=== PATIENT | male | born 1990 | race Caucasian/White ===

== ENCOUNTER 2017-12-14 13:19 | Inpatient (IN) | payer MEDICARE ==
[2017-12-14 13:58] LABS: Amphetamine Screen,Urine Not Detected (NotDetected); Barbiturate Screen,Urine Not Detected (NotDetected); Benzodiazepines Screen,Urine Not Detected (NotDetected); Cocaine Screen,Urine Not Detected (NotDetected); Methadone Screen, Urine Not Detected (NotDetected); Opiate Screen,Urine Not Detected (NotDetected); Oxycodone Screen, Urine Not Detected (NotDetected); Phencyclidine Screen,Urine Not Detected (NotDetected); Tricyclic Antidepressant,Urine Not Detected (NotDetected); Urn Cannabinoid Scrn Not Detected (NotDetected)
--- NOTE | 2017-12-14 14:26 | ED ---
General Adult HPI - General Chief complaint: Psychiatric Symptoms Stated complaint: PETITIONED Time Seen by Provider: 12/14/17 13:22 Source: patient, police, RN notes reviewed, old records reviewed Mode of arrival: ambulatory Limitations: no limitations - History of Present Illness Initial comments: This is a 18-year-old male the ER for evaluation. Patient is sent in for evaluation under court order for psychiatric evaluation. Patient is a poor historian - Related Data Home Medications Medication Instructions Recorded Confirmed ARIPiprazole [Abilify] 10 mg PO DAILY 12/14/17 12/14/17 Pyridoxine [Vitamin B-6] 50 mg PO DAILY 12/14/17 12/14/17 Allergies Allergy/AdvReac Type Severity Reaction Status Date / Time No Known Allergies Allergy Verified 12/14/17 13:44 Review of Systems ROS Statement: Those systems with pertinent positive or pertinent negative responses have been documented in the HPI. ROS Other: All systems not noted in ROS Statement are negative. Past Medical History Past Medical History: Memory Impairment Additional Past Medical History / Comment(s): psychosis, alt mental status, scoliosis History of Any Multi-Drug Resistant Organisms: None Reported Past Surgical History: No Surgical Hx Reported Past Anesthesia/Blood Transfusion Reactions: No Reported Reaction Past Psychological History: Anxiety, Schizoaffective Disorder Smoking Status: Current every day smoker Past Alcohol Use History: Occasional Past Drug Use History: None Reported General Exam Limitations: no limitations General appearance: alert, in no apparent distress Head exam: Present: atraumatic, normocephalic, normal inspection Eye exam: Present: normal appearance, PERRL, EOMI. Absent: scleral icterus, conjunctival injection, periorbital swelling ENT exam: Present: normal exam, mucous membranes moist Neck exam: Present: normal inspection. Absent: tenderness, meningismus, lymphadenopathy Respiratory exam: Present: normal lung sounds bilaterally. Absent: respiratory distress, wheezes, rales, rhonchi, stridor Cardiovascular Exam: Present: normal rhythm, tachycardia, normal heart sounds. Absent: systolic murmur, diastolic murmur, rubs, gallop, clicks GI/Abdominal exam: Present: soft, normal bowel sounds. Absent: distended, tenderness, guarding, rebound, rigid Extremities exam: Present: normal inspection, full ROM, normal capillary refill. Absent: tenderness, pedal edema, joint swelling, calf tenderness Back exam: Present: normal inspection Neurological exam: Present: alert, oriented X3, CN II-XII intact Psychiatric exam: Present: normal affect, normal mood Skin exam: Present: warm, dry, intact, normal color. Absent: rash Course Vital Signs 12/14/17 12/14/17 13:27 15:32 Temperature 98.5 F Pulse Rate 120 H 100 Respiratory 18 18 Rate Blood Pressure 142/87 131/66 O2 Sat by Pulse 98 98 Oximetry - Reevaluation(s) Reevaluation #1: 12/14/17 14:26 Medically clear for psychiatric evaluation Medical Decision Making - Medical Decision Making 18 female seen and evaluated with psychiatry will admit for psychiatric evaluation and treatment - Lab Data Lab Results 12/14/17 12/14/17 Range/Units 13:38 13:38 Urine Color Yellow Urine Appearance Clear (Clear) Urine pH 5.5 (5.0-8.0) Ur Specific Concepcion 1.031 (1.001-1.035) Urine Protein 1+ H (Negative) Urine Glucose (UA) Negative (Negative) Urine Ketones 4+ H (Negative) Urine Blood Negative (Negative) Urine Nitrite Negative (Negative) Urine Bilirubin 1+ H (Negative) Urine Urobilinogen 3.0 (<2.0) mg/dL Ur Leukocyte Esterase Negative (Negative) Urine RBC 1 (0-5) /hpf Urine WBC 1 (0-5) /hpf Urine Bacteria Rare H (None) /hpf Hyaline Casts 2 (0-2) /lpf Urine Mucus Many H (None) /hpf Urine Opiates Screen Not Detected (NotDetected) Ur Oxycodone Screen Not Detected (NotDetected) Urine Methadone Screen Not Detected (NotDetected) Ur Propoxyphene Screen Not Detected (NotDetected) Ur Barbiturates Screen Not Detected (NotDetected) U Tricyclic Antidepress Not Detected (NotDetected) Ur Phencyclidine Scrn Not Detected (NotDetected) Ur Amphetamines Screen Not Detected (NotDetected) U Methamphetamines Scrn Not Detected (NotDetected) U Benzodiazepines Scrn Not Detected (NotDetected) Urine Cocaine Screen Not Detected (NotDetected) U Marijuana (THC) Screen Not Detected (NotDetected) Disposition Clinical Impression: Acute anxiety, Depression, Adjustment reaction, Chronic schizophrenia Disposition: TRANSFER TO PSYCH HOSP/UNIT Condition: Fair
[2017-12-14] MEDS ORDERED: ACETAMINOPHEN TAB 325 MG TAB PO PRN (15:22)
[2017-12-14] MEDS ORDERED: LORazepam 1 MG TAB PO PRN (15:22)
[2017-12-14] MEDS ORDERED: MAGNESIUM HYDROXIDE 2,400 MG/10 ML CUP PO PRN (15:22)
[2017-12-14] MEDS ORDERED: ZIPRASIDONE 20 MG VIAL IM PRN (15:22)
[2017-12-14] MEDS ORDERED: MAG HYDROX/AL HYDROX/SIMETH 30 ML CUP PO PRN (15:22)
[2017-12-14] MEDS ORDERED: LORazepam 2 MG/ML INJ IM PRN (15:24)
[2017-12-14 15:32] LABS: Appearance,Urine Clear (Clear); Bacteria,Urine Rare /hpf; Bilirubin,Urine 1+ (Negative); Blood,Urine Negative (Negative); Color,Urine Yellow; Glucose,Urine (UA) Negative (Negative); Hyaline Casts,Urine 2 /lpf (0-2); Ketones,Urine 4+ (Negative); Leukocyte Esterase,Urine Negative (Negative); Mucus,Urine Many /hpf; Nitrite,Urine Negative (Negative); PH, Urine 5.5 (5.0-8.0); Protein,Urine 1+ (Negative); RBC,Urine 1 /hpf (0-5); Specific Gravity,Urine 1.031 (1.001-1.035); WBC,Urine 1 /hpf (0-5)
[2017-12-14] MEDS: NICOTINE 14MG/24HR PATCH TRANSDERM SCH (18:10)
[2017-12-15 08:38] LABS: HCT 46.8 % (39.0-53.0); HGB 16.7 gm/dL (13.0-17.5); MCH 29.7 pg (25.0-35.0); MCHC 35.7 g/dL (31.0-37.0); MCV 83.2 fL (80.0-100.0); Mean Platelet Volume 6.4; Platelet Count 202 k/uL (150-450); RBC 5.62 m/uL (4.30-5.90); RDW 11.7 % (11.5-15.5); WBC 7.6 k/uL (3.8-10.6)
[2017-12-15 08:56] LABS: ALT 36 U/L (21-72); AST 42 U/L (17-59); Alkaline Phosphatase 56 U/L (38-126); Anion Gap 15 mmol/L; Blood Urea Nitrogen 11 mg/dL (9-20); Calcium 9.8 mg/dL (8.4-10.2); Carbon Dioxide 29 mmol/L (22-30); Chloride 96 mmol/L (98-107); Cholesterol 141 mg/dL (<200); Glucose 104 mg/dL (74-99); HDL Cholesterol 52 mg/dL (40-60); LDL Cholesterol,Calculated 76 mg/dL (0-99); Potassium 3.5 mmol/L (3.5-5.1); Sodium 140 mmol/L (137-145); Total Bilirubin 1.8 mg/dL (0.2-1.3); Total Protein 7.9 g/dL (6.3-8.2); Triglycerides 63 mg/dL (<150)
[2017-12-15] MEDS: NICOTINE 14MG/24HR PATCH TRANSDERM SCH (09:49)
[2017-12-15 10:09] LABS: Basophils # (M) 0.08 k/uL (0-0.2); Eosinophils # (M) 0.38 k/uL (0-0.7); Lymphocytes # (M) 1.75 k/uL (1.0-4.8); Monocytes # (M) 0.68 k/uL (0-1.0); Neutrophils # (M) 4.71 k/uL (1.3-7.7); Neutrophils % (M) 62 %; Nucleated Red Blood Cells 0 /100 WBC (0-0); Total Cells Counted 100
[2017-12-15] MEDS ORDERED: NICOTINE 21MG/24HR PATCH TRANSDERM SCH (10:45)
--- NOTE | 2017-12-15 10:47 | HP ---
HISTORY AND PHYSICAL DATE OF SERVICE: 12/15/2017. IDENTIFYING DATA: This patient is a 26-year-old single male who was admitted to the mental health unit on a pickup order for acute symptoms of psychosis. HISTORY OF PRESENT ILLNESS: The patient presents with a petition completed by his mother stating "On Sunday, Javier told me he had quit taking his meds around Thanksgiving because they do not make him feel good and because he is fine and does not need any medications. He is currently acting very paranoid, not communicating with friends and family. I went to Javier's yesterday. He would not let me in his home. He was very standoffish and asked me to leave. He also asked his girlfriend to leave the home and go to her mother's. Javier acknowledged to his girlfriend he was hearing voices." The patient is found in the hallway. He approaches me. He follows me to an interview room. He has difficulty explaining how he got here to the hospital, but ultimately recalls that the police brought him. He has no insight as to why he is here and would like to be released. He indicates he has been off of his Abilify, but provides different time frames regarding this noncompliance. He states he has been off of it for only 1 month, but the documentation suggests much longer. He is endorsing some symptoms such as insomnia, feeling tired, decreased appetite with recent weight loss. He endorses having frequent tearfulness, but does not explain why. He endorses intermittent anxiety symptoms. He reports no auditory or visual hallucinations. He is reporting no specific delusions as we reviewed several types. It is obvious that he is experiencing symptoms of psychosis and is minimizing symptoms. He reports no thoughts of self-harm or harm to others. He reports residing with his girlfriend and states there are no firearms in their home. PAST PSYCHIATRIC HISTORY: He states this is his 3rd inpatient psychiatric admission. He endorses a suicide attempt back in 2007, but does not describe it. He states he has been working with Dr. Green but the timeline again is uncertain. It appears he has been on Abilify 10 mg daily when he was compliant. He states the longest period he was compliant with that medication was 2 years. He may have taken Lexapro and Risperdal in the past. PAST MEDICAL HISTORY: None reported. ALLERGIES: No known drug allergies. CHEMICAL DEPENDENCY HISTORY: He reports using 1 alcoholic drink once a month. He denies any use of marijuana or any other illicit drugs. He states he has never been placed in residential treatment for chemical dependency reasons. FAMILY PSYCHIATRIC HISTORY: Uncertain mental illness symptoms actually with his uncle and grandfather. No completed suicides in the family. FAMILY CHEMICAL DEPENDENCY HISTORY: Unknown. LEGAL HISTORY: None reported. ABUSE HISTORY: Unknown. SOCIAL HISTORY: The patient is 26 years old. He is single but does have a girlfriend of approximately 2 years. He states they reside together in [place]. He has no children. He states he was employed at a [employer] for 1 year, but he assumes he has lost his job. He has a high school education with some college credits from [employer]. No history of service. He has 1 sister. He is originally from [place], [place] and resides in [place] currently. MENTAL STATUS EXAM: The patient is a thin male. He has a visible tattoo in his right upper extremity. He is prematurely daigle in terms of hair color. Eye contact is intermittent. He will often pause speech to look around the room. He obviously demonstrates thought blocking. He has difficulty responding to questions at a normal pace. He is guarded and suspicious at times. He asked why I am asking certain questions and what my real intention may be. He is reporting no suicidal or homicidal thoughts. He is endorsing no specific delusions, but this is likely not a reliable report. He is endorsing no hallucinations and again it appears that he may be responding to some type of hallucination. Insight and judgment are impaired. He struggles with any cognitive testing today. He demonstrates no verbal or physical aggressiveness. In fact he demonstrates psychomotor slowing. He demonstrates no abnormal involuntary movements. IMPRESSIONS: Schizoaffective disorder. Rule out depressed type. PLAN: The patient has been admitted to the mental health unit on a petition and clinical certificate. He does not appreciate the therapeutic reasons for being admitted to the mental health unit. Therefore, I am completing a 2nd clinical certificate. He eventually agrees to let me restart the Abilify 10 mg daily. We will monitor him for safety and encourage his participation in the milieu. He will be seen by internal medicine for routine history and physical exam. Social Work will meet with the patient to complete a psychosocial assessment. Vital signs reviewed. Lab results reviewed. His urine drug screen was negative. MMODL / IJN: [id number] /
[2017-12-15] MEDS: ARIPiprazole 10 MG TAB PO SCH (11:11)
--- NOTE | 2017-12-15 16:47 | P.CONS ---
History of Present Illness - Reason for Consult Evaluated for hypothyroidism - History of Present Illness 18-year-old admitted for acute psychosis. Patient denied any symptoms except for a low back discomfort patient denied any fever chills nausea vomiting. Patient does have scoliosis. Patient is bit tachycardic denied any significant sleep problems mild low TSH will obtain T4 levels. If T4 levels are within normal limits and recommend reevaluation of thyroid function as an outpatient in about a month Review of Systems REVIEW OF SYSTEMS: CONSTITUTIONAL: No fever, no malaise, no fatigue. HEENT: No recent visual problems or hearing problems. Denied any sore throat. CARDIOVASCULAR: No chest pain, orthopnea, PND, no palpitations, no syncope. PULMONARY: No shortness of breath, no cough, no hemoptysis. GASTROINTESTINAL: No diarrhea, no nausea, no vomiting, no abdominal pain. Normoactive bowel sounds. NEUROLOGICAL: No headaches, no weakness, no numbness. HEMATOLOGICAL: Denies any bleeding or petechiae. GENITOURINARY: Denies any burning micturition, frequency, or urgency. MUSCULOSKELETAL/RHEUMATOLOGICAL: Denies any joint pain, swelling, or any muscle pain. ENDOCRINE: Denies any polyuria or polydipsia. The rest of the 14-point review of systems is negative. Past Medical History Past Medical History: Memory Impairment Additional Past Medical History / Comment(s): psychosis, alt mental status, scoliosis History of Any Multi-Drug Resistant Organisms: None Reported Past Surgical History: No Surgical Hx Reported Past Anesthesia/Blood Transfusion Reactions: No Reported Reaction Smoking Status: Current every day smoker Medications and Allergies Home Medications Medication Instructions Recorded Confirmed Type ARIPiprazole [Abilify] 10 mg PO DAILY 12/14/17 12/14/17 History Pyridoxine [Vitamin B-6] 50 mg PO DAILY 12/14/17 12/14/17 History Allergies Allergy/AdvReac Type Severity Reaction Status Date / Time No Known Allergies Allergy Verified 12/14/17 20:59 Physical Exam Vitals: Vital Signs Temp Pulse Resp BP 12/15/17 00:45 97.7 F 105 H 18 130/83 PHYSICAL EXAMINATION: GENERAL: The patient is alert and oriented x3, not in any acute distress. Well developed, well nourished. HEENT: Pupils are round and equally reacting to light. EOMI. No scleral icterus. No conjunctival pallor. Normocephalic, atraumatic. No pharyngeal erythema. No thyromegaly. CARDIOVASCULAR: S1 and S2 present. No murmurs, rubs, or gallops. PULMONARY: Chest is clear to auscultation, no wheezing or crackles. ABDOMEN: Soft, nontender, nondistended, normoactive bowel sounds. No palpable organomegaly. MUSCULOSKELETAL: No joint swelling or deformity. EXTREMITIES: No cyanosis, clubbing, or pedal edema. NEUROLOGICAL: Gross neurological examination did not reveal any focal deficits. SKIN: No rashes. Results CBC & Chem 7: 12/15/17 08:10 12/15/17 08:10 Labs: Abnormal Lab Results - Last 24 Hours (Table) 12/15/17 Range/Units 08:10 Chloride 96 L (98-107) mmol/L Glucose 104 H (74-99) mg/dL Total Bilirubin 1.8 H (0.2-1.3) mg/dL TSH 0.460 L (0.465-4.680) mIU/L Assessment and Plan Plan: -Mildly low TSH: Further management as mentioned above -Mildly elevated bilirubin no further intervention is necessary mild elevations are not uncommon once repeat the test it can come back as normal. -Acute psychosis management as per primary service
[2017-12-15] MEDS: NICOTINE 7MG/24HR PATCH TRANSDERM STA ×2 (17:38→18:58)
[2017-12-15 20:39] LABS: Hemoglobin A1C 4.7 % (4.0-6.0)
[2017-12-16] MEDS: ARIPiprazole 10 MG TAB PO SCH (09:27)
[2017-12-16] MEDS: NICOTINE 7MG/24HR PATCH TRANSDERM SCH ×2 (09:27→14:37)
--- NOTE | 2017-12-16 10:35 | P.PN ---
Progress Note - Text Interval history: The patient is found in the hallway he follows me to an interview room. He reports that his mood is better than yesterday. He states that his vision has become more clear. He states that he is able to think more clearly as well. He indicates he slept 6 hours last night staff reported that he slept 3 hours and was restless. He states his appetite had been impaired but it's improved today. He plans on attending groups today. He expects he may have some visits this evening. He has no questions or concerns regarding the Abilify. Mental status exam: The patient is a thin male he seated calmly in the chair. He is dressed in his own clothing. Eye contacts is intermittent. Speech is spontaneous fluent. He does demonstrate some mild psychomotor slowing at times. He is endorsing no symptoms of psychosis but they appear to persist in observing his behavior. He demonstrates no verbal or physical aggressiveness. He demonstrates no abnormal involuntary movements. Insight and judgment remain limited. He is oriented to person place and date. He is directable during this session and is pleasant. Plan: The patient will continue on the Abilify as written. We will monitor him for safety and encourage full participation in the milieu. Vital signs reviewed.
[2017-12-17] MEDS: ARIPiprazole 10 MG TAB PO SCH (07:58)
[2017-12-17] MEDS: NICOTINE 7MG/24HR PATCH TRANSDERM SCH (07:59)
--- NOTE | 2017-12-17 12:30 | P.PN ---
Progress Note - Text Progress Note Date: 12/17/17 Interval History: Patient is a 26-year-old male who was seen today and he told me that he is thinking is clear. Patient states he stopped his medication in June because he thought he was becoming tolerant to the Abilify. He states he been taking long-acting Abilify injections in the past but stopped those and started oral medication. Thought his parents were causing him harm, and states that he thinks most of his difficulties began when he is depressed in high school and started on Effexor and abruptly discontinued it. Patient was unable to understand why his parents petitioned him, was unable to understand the involuntary process when I reviewed it with him. Patient states that if I ask him a question he has no verbal thoughts in his head, he states that he can't hear his own thoughts and states that it was noisy before his eyes began the interview. He states he is unable to tell me why his girlfriend was afraid of him. He states that there have been struggles at home with a girlfriend and its due to miscommunication in their conversations. He reported that the energy in groups here from makes him feel boxed in and so he needs to leave. Mental Status: Appearance/Attitude: Patient is appropriately dressed, makes intermittent eye contact and is cooperative Behavior: Patient did not display any psychomotor agitation or retardation however did need to get up with the end of the interview and begin pacing in the room Speech/Language: Patient was spontaneous, speech is of normal volume and rhythm and he was coherent Thought Process: Patient's responses to some questions were goal directed at other times his responses were disjointed, not goal-directed and he had difficulty organizing his thoughts to respond Thought Content: Patient denied auditory or visual hallucinations, patient denied that he was feeling paranoid and no other delusions were elicited. Patient states that he is feeling boxed in by the energy and group and this is why he leaves the groups at times. He states that he doesn't understand why he is in the hospital and states that he stopped the medication because he thought he was becoming tolerant to it. Patient states he's been a Bible to work for the last 3 weeks but is unable to explain to me why. Suicidal/Homicidal Ideation: Patient denies any current suicidal or homicidal ideation Sensorium/Cognition: Patient is alert and oriented to person, place, and time and his recent and remote memory are grossly intact Mood/Affect: Patient's mood is guarded and his affect is blunted Insight/Judgment: Patient's insight and judgment are impaired Assessment: Patient was agreeable to taking oral Abilify and was begun on 10 mg. Patient reports that his thinking is clearer however the patient's responses to questions are not goal-directed at times and/or disjointed and at times the patient appears guarded and suspicious. Patient is denying that he's having any suicidal thoughts. Patient states he is unaware of why his girlfriend is afraid of him and denies that he is having hallucinations, but states that he can't hear his own thoughts. Patient was reported by staff to be religiously preoccupied in group therapy making comments about the Bible, the serenity prayer wasn't in the Bible. I explained the involuntary process several times to the patient and he continues to question why he was admitted involuntarily, stating that he did not think he needed the medication. Plan: Patient will continue on Abilify 10 mg, will continue to titrate the medication to target his symptoms of psychosis. Patient was encouraged to attend groups and activities. Patient continues to require hospitalization to further stabilize his psychotic symptoms. Patient's free T4 was within normal limits.
[2017-12-18 06:49] VITALS: RESP 16
[2017-12-18] MEDS: NICOTINE 7MG/24HR PATCH TRANSDERM SCH (09:20)
[2017-12-18] MEDS: ARIPiprazole 10 MG TAB PO SCH (09:20)
--- NOTE | 2017-12-18 13:51 | P.PN ---
Progress Note - Text Progress Note Date: 12/18/17 Interval History: Patient is a 26-year-old male who was seen today who reported that he is angry and irritable about being in the hospital, continues to question why he needs the medication. Patient states that he attends some groups. He reported to me that his mother's signature looked photocopied on the petition and he could not understand why she would've filled out a hospital form. He states that he also could not read his legal documents because they were blurred. He reported that he felt like he was going to be here forever. When discussing medication the patient refused an increase in his Abilify as well as refusing long-acting injectable. Patient states that he felt like he slept for 8 hours last evening and feels rested this morning. Patient reports that he had decided to stop his medications and hadn't been on them for 5 months and had been doing quite well. He then wondered if he would continue to have a job or not once he is discharged. Mental Status: Appearance/Attitude: Patient is appropriately dressed, makes intermittent eye contact, at times gets up and paces in the office and looks at himself in the mirror and is superficially cooperative Behavior: Patient does not exhibit any psychomotor agitation or retardation. Speech/Language: Patient's speech is spontaneous and normal volume and rhythm and he is coherent Thought Process: Patient is goal-directed, no evidence of loose association or flight of ideas Thought Content: Patient denies auditory or visual hallucinations, patient did express that he thought his mother's signature would been photocopied on forms questioned why his mother would've been writing on a hospital document and states he can't read them because they're blurry. Patient is ambivalent and argumentative when it comes to discussing his medications questioning how he is doing right this moment. Patient states that he discontinued his medications 5 months ago because he did not feel he needs them. He states he is angry and irritable about being in the hospital and feels he'll be here forever. Patient continues to question the need for medication and states that he is been sleeping and eating well. Suicidal/Homicidal Ideation: Patient denies current suicidal or homicidal ideation Sensorium/Cognition: Patient is alert and oriented to person, place, and time and his recent and remote memory are grossly intact Mood/Affect: patient's mood is guarded and his affect is blunted Insight/Judgment: Patient's insight and judgment are limited Assessment: Patient remains delusional today verbalizing concerns about whether his mother's signature was photocopied and questioning why she would have filled out a hospital form. Patient remains argumentative and ambivalent about taking medication and questions the need for medication stating that he had discontinued at 5 months ago. He is questioning whether he may have a job to return to her not. Patient states he's been attending some groups. Patient discussed his upcoming deferral on the and hearing on the stating that he thought he may defer. Plan: Patient continues on Abilify 10 mg daily he refused to have the medication increased. Patient continues to require hospitalization to further stabilize his psychotic symptoms.
[2017-12-18] MEDS ORDERED: LORazepam 1 MG TAB ONE (23:51)
[2017-12-19] MEDS: ARIPiprazole 10 MG TAB PO SCH (08:40)
[2017-12-19] MEDS: NICOTINE 7MG/24HR PATCH TRANSDERM SCH (08:42)
--- NOTE | 2017-12-19 13:45 | P.PN ---
Progress Note - Text Progress Note Date: 12/19/17 Interval History: Patient is a 26-year-old male who states that he is feeling slightly drowsy this morning because he took Ativan last night to help him sleep. Patient states that he's been trying to attend groups but has to leave at times because of the "energy I feel in the groups from the way people are sitting, talking". Patient stated that he had spoken to his former girlfriend, then described her as "the light in my life". Patient becomes quite guarded when asking about his relationship with his girlfriend and why he referred to her wrists his former girlfriend. Patient denies auditory hallucinations. He again needed to get up and paced during the interview. Mental Status: Appearance/Attitude: Patient is dressed in pajama bottoms and a T -shirt, makes intermittent eye contact and is cooperative Behavior: Patient does not exhibit any psychomotor agitation or retardation, but again needed to get up and paced during the interview Speech/Language: Patient's speech is spontaneous of normal volume and rhythm and he is coherent Thought Process: Patient responds to questions in a vague and circumstantial fashion Thought Content: Patient denies auditory or visual hallucinations no delusions or paranoid ideation or elicited. Patient however remains guarded, stated today that he feels energy in the groups and needs to leave at times because it is negative. Patient reports that he took Ativan to assist with sleep last night but feels drowsy this morning. He states he tries to attend the groups but due to this energy that he feels he needs to leave at times. Suicidal/Homicidal Ideation: Patient denies any current suicidal or homicidal ideation Sensorium/Cognition: Patient is alert and oriented to person, place, and time and his recent and remote memory are grossly intact Mood/Affect: Patient's mood remains guarded and his affect restricted Insight/Judgment: Patient's insight and judgment are impaired Assessment: Patient remains guarded, today discussing that he tries to attend groups but the energy that he feels from the others in the groups causes him to leave at times when it is negative in quality. Patient remains circumstantial and vague when responding to questions, makes intermittent eye contact and again needed to get up and paced during the interview. Patient declined to have his Abilify increased at this time stating he'll wait for the deferral tomorrow. He discussed his former girlfriend and then stated that she was the light in his life but again became suspicious when I asked him about their relationship. Patient goes in and out of groups, not able to stay in any group for the complete length of time. Plan: Patient will continue on Abilify 10 mg, his deferral is tomorrow at 3 PM. Patient is requesting a change in outpatient treatment on discharge. Patient continues to require hospitalization to further target his psychotic symptoms.
[2017-12-19] MEDS: MELATONIN 3 MG TABLET PO SCH (22:23)
[2017-12-20] MEDS: ARIPiprazole 10 MG TAB PO SCH (08:44)
[2017-12-20] MEDS: NICOTINE 7MG/24HR PATCH TRANSDERM SCH (08:45)
[2017-12-20] MEDS ORDERED: ARIPiprazole 400 MG VIAL (NO CHARGE) IM ONE (10:06)
--- NOTE | 2017-12-20 12:35 | P.PN ---
Progress Note - Text Progress Note Date: 12/20/17 Interval History: Patient is a 26-year-old male who was seen this morning and he reports that he woke up several times last night but was able to return to sleep and that the melatonin did help him fall asleep. Patient feels that his mood has been more stable. He reports no auditory or visual hallucinations. He states that he is not feeling suicidal. Patient and I discussed his medications and he was agreeable to taking the long-acting injectable Abilify. Patient was less guarded or in the interview and was not pacing during the interview. Patient did request that he not return to his prior outpatient treatment. Mental Status: Appearance/Attitude: Patient is casually dressed, made better eye contact and was cooperative. Behavior: Patient did not exhibit any psychomotor agitation or retardation. Patient was able to sit quietly during the interview without pacing Speech/Language: Patient's speech was spontaneous of normal volume and rhythm and he was coherent. Thought Process: Patient was goal-directed and was less circumstantial no evidence of loose association or flight of ideas Thought Content: Patient denied auditory or visual hallucinations and no paranoid ideation or delusional ideation was elicited. Patient was less tangential and able to discuss his medications without any ambivalence or vague answers. He was agreeable to continue with the Abilify and was agreeable to taking the long-acting injectable medication. Patient states that his mood was more stable. He reports his sleep was interrupted last evening but he was able to return to sleep and felt rested this morning and he states that his appetite is good. Suicidal/Homicidal Ideation: Patient denies any current suicidal or homicidal ideation Sensorium/Cognition: Patient is alert and oriented to person, place, and time and his recent and remote memory are intact Mood/Affect: Patient's mood is less guarded and his affect is slightly blunted Insight/Judgment: Patient's insight and judgment are improving Assessment: Patient and I discussed his medications and he was agreeable to taking the Abilify long-acting injectable at 300 mg, patient reports that his mood is more stable. He felt that the melatonin had been helpful in his sleep last evening. Patient was less guarded during the interview and was not is ambivalent about medication nor is vague and circumstantial in his responses as he has been in the past. Patient was able to sit quietly during the interview without pacing. Patient attends some groups and activities. Patient is requesting a different outpatient follow-up referral on discharge. Plan: Patient will continue on Abilify 10 mg for 14 more days and will receive Abilify Maintenna 300 mg IM today. Patient will also continue on melatonin 3 mg at bedtime. Patient continues to require hospitalization to further stabilize his psychotic symptoms.
[2017-12-20] MEDS: MELATONIN 3 MG TABLET PO SCH (22:06)
[2017-12-21] MEDS: NICOTINE 7MG/24HR PATCH TRANSDERM SCH ×2 (08:56→10:57)
[2017-12-21] MEDS: ARIPiprazole 10 MG TAB PO SCH (08:57)
--- NOTE | 2017-12-21 11:39 | P.PN ---
Progress Note - Text Progress Note Date: 12/21/17 Interval History: Patient is a 26-year-old male who was seen today and he discussed that he would need to be living with his parents after discharge as his girlfriend has moved her things out of the apartment and the lease expires in 2 months. Patient states that he suspects he will also need to look for another job when he is discharged. Patient reports that he is not eager to live with his parents because he states that he really doesn't get along well with them. Patient reports that he feels his thinking is clear and that he is doing better on the medication and sees the benefits of the medication. Patient states that he did defer yesterday when he met with the spray gun sizer. Mental Status: Appearance/Attitude: Patient is casually dressed, makes good eye contact and is cooperative. Behavior: Patient does not exhibit any psychomotor agitation or retardation was able to sit quietly during the interview. Speech/Language: Patient's speech is spontaneous and normal volume and rhythm and he is coherent. Thought Process: Patient is goal-directed there is no evidence of loose association or flight of ideas and he is not circumstantial or tangential Thought Content: Patient denies auditory or visual hallucinations no delusions or paranoid ideation were elicited. Patient states that his thinking is much clearer he admitted that he is no longer feeling suspicious. Patient states that he is sleeping well and his appetite is good. Patient discussed that he will not be returning to the apartment that he and his girlfriend were living in and she is moved her things out as well as the fact that he will probably have lost his job when he is discharged. Patient reported no side effects from his medication Suicidal/Homicidal Ideation: Patient denied any current suicidal or homicidal ideation Sensorium/Cognition: Patient is alert and oriented to person, place, and time and his recent and remote memory are grossly intact Mood/Affect: Patient's mood is less guarded and his affect is slightly blunted Insight/Judgment: Patient's insight and judgment are improving Assessment: Patient discussed his girlfriend moving out, they're not living together anymore and losing the apartment in 2 months as well as probably losing his job and did not report feeling distressed by this information. He reports that he is not happy to return to live with his parents but we'll plan on looking for a job and trying to find his own place soon. Patient reports no side effects from the medication and does feel that the medication has been beneficial and reports that his thinking is much clearer. Patient has been attending groups and activities and not walking out. Patient was able to sit quietly during the interview and is much more focused and organized in his thinking and response to questions. Plan: Patient continue on Abilify 10 mg orally and he received Abilify Maintenna 300 mg on December 20. Patient and I discussed his discharge for Sunday , he is requesting different follow-up after discharge.
[2017-12-21] MEDS: MELATONIN 3 MG TABLET PO SCH (21:51)
[2017-12-22] MEDS: ARIPiprazole 10 MG TAB PO SCH (09:06)
[2017-12-22] MEDS: NICOTINE 7MG/24HR PATCH TRANSDERM SCH (09:06)
--- NOTE | 2017-12-22 15:51 | P.PN ---
Progress Note - Text Progress Note Date: 12/22/17 Interval history: Patient is seen in [facility] today. He describes that his parents are coming to visit [facility]. He does not voice any adverse psychotropic medication side effects. He does talk about discharge planning for Sunday. Mental status exam: He is alert and cooperative with the interview. Speech is fluent, rapid or pressured. Thought processes are organized. He does not verbalize any thoughts of harm to self or others. He does not voice any hallucinations, does not appear responding to any internal stimuli. He does not make any kayleigh delusional statements. Mood currently appears to be stable. Plan: Patient will be maintained on current psychotropic medication regimen. We 'll monitor for any medication side effects monitor his ongoing response. We' ll continue to cover this patient through the weekend.
[2017-12-22] MEDS: MELATONIN 3 MG TABLET PO SCH (21:41)
[2017-12-23] MEDS: NICOTINE 7MG/24HR PATCH TRANSDERM SCH (08:43)
[2017-12-23] MEDS: ARIPiprazole 10 MG TAB PO SCH (08:43)
--- NOTE | 2017-12-23 17:38 | P.PN ---
Progress Note - Text Progress Note Date: 12/23/17 Interval history: Patient reports that his mood is doing pretty good. He does talk about discharge plans for tomorrow. He did a visit from his parents last night. He also talks about looking at a family meeting tomorrow. He does not seem to voice any adverse atrophic medication side effects. He slept approximately 6 hours last night. Mental status exam: He is alert and cooperative with the interview. His speech is fluent, thought processes are organized. He describes his mood as pretty good. He denies any thoughts of harm to self or others. He does not verbalize any hallucinations or delusional thoughts. He does not show any agitation. Plan: Patient will be maintained on current psychotropic medication regimen. Continue to monitor for any medication side effects and monitor his ongoing response.
[2017-12-23] MEDS: MELATONIN 3 MG TABLET PO SCH (22:30)
[2017-12-24 04:05] VITALS: BP 131/68; PULSE 95; TEMP 97.8
[2017-12-24] MEDS: ARIPiprazole 10 MG TAB PO SCH (08:27)
[2017-12-24] MEDS: NICOTINE 7MG/24HR PATCH TRANSDERM SCH (08:27)
--- NOTE | 2017-12-24 11:13 | P.DS ---
Providers Date of admission: 12/14/17 15:13 Expected date of discharge: 12/24/17 Attending physician: Renetta Gee MD Consults: 12/14/17 15:22 Consult Physician Routine Consulting Provider: Seven Callahan Consult Reason/Comments: follow up H & P Do you want consulting provider notified?: Yes Primary care physician: [facility] Course: Discharge Diagnosis: Schizoaffective disorder, depressed type Reason for Admission: Patient is a 26-year-old male who was admitted to the mental health unit on a pickup order for symptoms of psychosis. Patient's mother had completed the petition stating that the patient had stopped his medications at the end of July and that he did not feel he needed to continue taking them. Patient was extremely paranoid and not communicating with friends or family. He would not let his mother in the house and had asked his girlfriend to also move out of the house. Patient was unable to explain how he got to the hospital and stated that he felt like he needed to be released and did not need to be taking medication. Patient reported that he was feeling tired, with a decreased appetite and weight loss. Patient denied any auditory or visual hallucinations on admission and denied any current suicidal or homicidal ideation. Patient was extremely guarded and suspicious, questioning what the reason for questions were on admission. He questioned the intention of the physician examining him. Patient had evidence of psychomotor slowing on admission having difficulty responding to questions, difficulty with cognitive testing. Hospital Course: Patient was admitted on an involuntary basis, he was placed on routine observation in group and activity therapy were ordered. Patient also had routine laboratory studies as well as a medical consultation. Patient was placed on Abilify 10 mg on admission and he was agreeable to take the medication. Patient remained guarded and suspicious, he continued to feel that the medication was not necessary. Patient did attend groups and activities but could not stay for more than a few minutes at a time and during interviews with him he would pace most of the time. Patient did defer his hearing and at that time was given Abilify 300 mg long-acting injectable. Patient did show improvement with a decrease in his suspiciousness, he was not pacing and was able to sit quietly during the interview. He reported that his thoughts were much clearer and he felt that he was doing better on the medication. Patient reported that he was aware that his girlfriend had moved back in with her parents, that he would be living with his parents on discharge and they probably had lost his job and would need to look for another one. Patient stated that he was sleeping well on melatonin which was added to assist with his sleep. Patient reported no side effects from the Abilify. Patient reports that he was eating well, his sleep was restful he reported no paranoid ideation and no auditory hallucinations. Patient reported that he felt much better on the medication and did agree that he needed to continue taking it. Patient felt he was ready for discharge. Allergies No Known Allergies Allergy (Verified 12/14/17 20:59) Laboratory Last Values WBC 7.6 k/uL (3.8-10.6) 12/15/17 08:10 RBC 5.62 m/uL (4.30-5.90) 12/15/17 08:10 Hgb 16.7 gm/dL (13.0-17.5) 12/15/17 08:10 Hct 46.8 % (39.0-53.0) 12/15/17 08:10 MCV 83.2 fL (80.0-100.0) 12/15/17 08:10 MCH 29.7 pg (25.0-35.0) 12/15/17 08:10 MCHC 35.7 g/dL (31.0-37.0) 12/15/17 08:10 RDW 11.7 % (11.5-15.5) 12/15/17 08:10 Plt Count 202 k/uL (150-450) 12/15/17 08:10 Neutrophils % (Manual) 62 % 12/15/17 08:10 Lymphocytes % (Manual) 23 % 12/15/17 08:10 Monocytes % (Manual) 9 % 12/15/17 08:10 Eosinophils % (Manual) 5 % 12/15/17 08:10 Basophils % (Manual) 1 % 12/15/17 08:10 Neutrophils # (Manual) 4.71 k/uL (1.3-7.7) 12/15/17 08:10 Lymphocytes # (Manual) 1.75 k/uL (1.0-4.8) 12/15/17 08:10 Monocytes # (Manual) 0.68 k/uL (0-1.0) 12/15/17 08:10 Eosinophils # (Manual) 0.38 k/uL (0-0.7) 12/15/17 08:10 Basophils # (Manual) 0.08 k/uL (0-0.2) 12/15/17 08:10 Nucleated RBCs 0 /100 WBC (0-0) 12/15/17 08:10 RBC Morphology Normal 12/15/17 08:10 Sodium 140 mmol/L (137-145) 12/15/17 08:10 Potassium 3.5 mmol/L (3.5-5.1) 12/15/17 08:10 Chloride 96 mmol/L (98-107) L 12/15/17 08:10 Carbon Dioxide 29 mmol/L (22-30) 12/15/17 08:10 Anion Gap 15 mmol/L 12/15/17 08:10 BUN 11 mg/dL (9-20) 12/15/17 08:10 Creatinine 0.76 mg/dL (0.66-1.25) 12/15/17 08:10 Est GFR (CKD-EPI)AfAm >90 (>60 ml/min/1.73 sqM) 12/15/17 08:10 Est GFR (CKD-EPI)NonAf >90 (>60 ml/min/1.73 sqM) 12/15/17 08:10 Glucose 104 mg/dL (74-99) H 12/15/17 08:[address] Glu mg/dL 88 12/15/17 08:10 Hemoglobin A1c 4.7 % (4.0-6.0) 12/15/17 08:10 Calcium 9.8 mg/dL (8.4-10.2) 12/15/17 08:10 Total Bilirubin 1.8 mg/dL (0.2-1.3) H 12/15/17 08:10 AST 42 U/L (17-59) 12/15/17 08:10 ALT 36 U/L (21-72) 12/15/17 08:10 Alkaline Phosphatase 56 U/L (38-126) 12/15/17 08:10 Total Protein 7.9 g/dL (6.3-8.2) 12/15/17 08:10 Albumin 5.0 g/dL (3.5-5.0) 12/15/17 08:10 Triglycerides 63 mg/dL (<150) 12/15/17 08:10 Cholesterol 141 mg/dL (<200) 12/15/17 08:10 LDL Cholesterol, Calc 76 mg/dL (0-99) 12/15/17 08:10 HDL Cholesterol 52 mg/dL (40-60) 12/15/17 08:10 TSH 0.460 mIU/L (0.465-4.680) L 12/15/17 08:10 Free T4 1.63 ng/dL (0.78-2.19) 12/15/17 08:10 Urine Color Yellow 12/14/17 13:38 Urine Appearance Clear (Clear) 12/14/17 13:38 Urine pH 5.5 (5.0-8.0) 12/14/17 13:38 Ur Specific Elrod 1.031 (1.001-1.035) 12/14/17 13:38 Urine Protein 1+ (Negative) H 12/14/17 13:38 Urine Glucose (UA) Negative (Negative) 12/14/17 13:38 Urine Ketones 4+ (Negative) H 12/14/17 13:38 Urine Blood Negative (Negative) 12/14/17 13:38 Urine Nitrite Negative (Negative) 12/14/17 13:38 Urine Bilirubin 1+ (Negative) H 12/14/17 13:38 Urine Urobilinogen 3.0 mg/dL (<2.0) 12/14/17 13:38 Ur Leukocyte Esterase Negative (Negative) 12/14/17 13:38 Urine RBC 1 /hpf (0-5) 12/14/17 13:38 Urine WBC 1 /hpf (0-5) 12/14/17 13:38 Urine Bacteria Rare /hpf (None) H 12/14/17 13:38 Hyaline Casts 2 /lpf (0-2) 12/14/17 13:38 Urine Mucus Many /hpf (None) H 12/14/17 13:38 Urine Opiates Screen Not Detected (NotDetected) 12/14/17 13:38 Ur Oxycodone Screen Not Detected (NotDetected) 12/14/17 13:38 Urine Methadone Screen Not Detected (NotDetected) 12/14/17 13:38 Ur Propoxyphene Screen Not Detected (NotDetected) 12/14/17 13:38 Ur Barbiturates Screen Not Detected (NotDetected) 12/14/17 13:38 U Tricyclic Antidepress Not Detected (NotDetected) 12/14/17 13:38 Ur Phencyclidine Scrn Not Detected (NotDetected) 04 13:38 Ur Amphetamines Screen Not Detected (NotDetected) 12/14/17 13:38 U Methamphetamines Scrn Not Detected (NotDetected) 12/14/17 13:38 U Benzodiazepines Scrn Not Detected (NotDetected) 12/14/17 13:38 Urine Cocaine Screen Not Detected (NotDetected) 12/14/17 13:38 U Marijuana (THC) Screen Not Detected (NotDetected) 12/14/17 13:38 Discharge Mental Status: Appearance/Attitude: Patient was appropriately dressed , made good eye contact and was cooperative. Behavior: Patient did not exhibit any psychomotor retardation or agitation. Speech/Language: His speech was spontaneous and normal volume and rhythm and he was coherent. Thought Process: Patient was goal-directed there was no evidence of loose association or flight of ideas Thought Content: Patient denied any auditory or visual hallucinations and no paranoid or delusional ideation was elicited. Patient was much more relaxed and reported that his thinking was much clearer on the medication and that he felt better on it. He reported that he was sleeping well and his appetite was good. Suicidal/Homicidal Ideation: Patient denied any current suicidal or homicidal ideation Sensorium/Cognition: Patient was alert and oriented to person, place, and time and his recent and remote memory were grossly intact. Mood/Affect: Patient's mood was less guarded and his affect was appropriate to his mood Insight/Judgment: Patient's insight and judgment are fair Risk Assessment: Patient's risk for self harm is low should patient continue with medications, he has 1 prior suicide attempt and follow-up with outpatient care Discharge Plan: Patient will return to live with his parents, he will continue on Abilify 10 mg for 9 more days to complete a 14 day course and he will receive his next injection of Abilify Maintenna 300 mg on January 17. Patient will also be given a prescription for melatonin 3 mg at bedtime. Patient will be following up at [facility]. Patient was encouraged to avoid all alcohol and drugs and be compliant with follow-up and his medication. Patient Condition at Discharge: Stable Plan - Discharge Summary Discharge Rx Participant: No New Discharge Prescriptions: New ARIPiprazole [Abilify Maintena] 300 mg IM QMONTH #1 vial Melatonin 3 mg PO HS #28 tablet Continue Pyridoxine [Vitamin B-6] 50 mg PO DAILY ARIPiprazole [Abilify] 10 mg PO DAILY #9 tab Discharge Medication List Pyridoxine [Vitamin B-6] 50 mg PO DAILY 12/14/17 [History] ARIPiprazole [Abilify Maintena] 300 mg IM QMONTH #1 vial 12/24/17 [Rx] ARIPiprazole [Abilify] 10 mg PO DAILY #9 tab 12/24/17 [Rx] Melatonin 3 mg PO HS #28 tablet 12/24/17 [Rx] Follow up Appointment(s)/Referral(s): Lala Greer [Outside] - 12/31/17 8:30 am ([facility]) Lyle Benjamin DO [Primary Care Provider] - 1-2 days Patient Instructions/Handouts: How to Stop Smoking (GEN) Activity/Diet/Wound Care/Special Instructions: Keep your follow up appointments as scheduled. Continue medications as prescribed. No alcohol or street drugs. No guns or weapons. Crisis line if needed . Discharge Disposition: HOME SELF-CARE
== END 2017-12-24 12:54 | disposition home or self-care (01) | DRG 885 ==
LOC: EC 13:19 → 3MHU 15:13
PROVIDERS: ADMIT Psychiatry & Neurology Psychiatry; ATTEND Psychiatry & Neurology Psychiatry
DX: F25.1 Schizoaffective disorder, depressive type (principal); M41.9 Scoliosis, unspecified; F43.22 Adjustment disorder with anxiety; G47.00 Insomnia, unspecified; Z91.19 Patient's noncompliance with other medical treatment and regimen; F17.200 Nicotine dependence, unspecified, uncomplicated; Z79.899 Other long term (current) drug therapy; R94.5 Abnormal results of liver function studies; R94.6 Abnormal results of thyroid function studies
CPT/HCPCS: 80053; 80061; 80306; 81001; 82075; 83036; 84439; 84443; 85025; 99285

== ENCOUNTER 2018-01-02 00:25 | Inpatient (IN) | payer MEDICARE ==
[2018-01-02 01:10] LABS: Cocaine Screen,Urine Not Detected (NotDetected); Phencyclidine Screen,Urine Not Detected (NotDetected); Urn Cannabinoid Scrn Not Detected (NotDetected)
[2018-01-02 01:11] LABS: Amphetamine Screen,Urine Not Detected (NotDetected); Barbiturate Screen,Urine Not Detected (NotDetected); Benzodiazepines Screen,Urine Not Detected (NotDetected); Methadone Screen, Urine Not Detected (NotDetected); Opiate Screen,Urine Not Detected (NotDetected); Oxycodone Screen, Urine Not Detected (NotDetected); Tricyclic Antidepressant,Urine Not Detected (NotDetected)
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
[2018-01-02] MEDS ORDERED: MAG HYDROX/AL HYDROX/SIMETH 30 ML CUP PO PRN (03:07)
[2018-01-02] MEDS ORDERED: ACETAMINOPHEN TAB 325 MG TAB PO PRN (03:07)
[2018-01-02] MEDS ORDERED: MAGNESIUM HYDROXIDE 2,400 MG/10 ML CUP PO PRN (03:07)
[2018-01-02] MEDS ORDERED: ZIPRASIDONE 20 MG VIAL IM PRN (03:07)
[2018-01-02] MEDS ORDERED: LORazepam 1 MG TAB PO PRN (03:07)
[2018-01-02] MEDS ORDERED: MELATONIN 3 MG TABLET PO SCH (03:15)
[2018-01-02 04:23] VITALS: BP 109/69; PULSE 102; RESP 16; TEMP 97.7
[2018-01-02] MEDS ORDERED: ARIPiprazole 10 MG TAB PO SCH (09:00)
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
--- NOTE | 2018-01-02 16:11 | P.CONS ---
History of Present Illness - Reason for Consult Tachycardia - History of Present Illness Patient was admitted for his psychiatric issues clinically doing well is being discharged today. Patient has tachycardia when he came in as she was anxious at that time patient sinus rhythm now upon palpation of pulse and heart patient heart rate in rhythm or controlled. Patient denied fever chills nausea vomiting abdominal pain dysuria cough runny nose. Patient is being discharged today which is okay from medical perspective Review of Systems REVIEW OF SYSTEMS: CONSTITUTIONAL: No fever, no malaise, no fatigue. HEENT: No recent visual problems or hearing problems. Denied any sore throat. CARDIOVASCULAR: No chest pain, orthopnea, PND, no palpitations, no syncope. PULMONARY: No shortness of breath, no cough, no hemoptysis. GASTROINTESTINAL: No diarrhea, no nausea, no vomiting, no abdominal pain. Normoactive bowel sounds. NEUROLOGICAL: No headaches, no weakness, no numbness. HEMATOLOGICAL: Denies any bleeding or petechiae. GENITOURINARY: Denies any burning micturition, frequency, or urgency. MUSCULOSKELETAL/RHEUMATOLOGICAL: Denies any joint pain, swelling, or any muscle pain. ENDOCRINE: Denies any polyuria or polydipsia. The rest of the 14-point review of systems is negative. Past Medical History Past Medical History: Memory Impairment Additional Past Medical History / Comment(s): psychosis, alt mental status, scoliosis History of Any Multi-Drug Resistant Organisms: None Reported Past Surgical History: No Surgical Hx Reported Past Anesthesia/Blood Transfusion Reactions: No Reported Reaction Past Psychological History: Anxiety, Schizoaffective Disorder Smoking Status: Current every day smoker Past Alcohol Use History: None Reported Past Drug Use History: None Reported Medications and Allergies Home Medications Medication Instructions Recorded Confirmed Type Melatonin 3 mg PO HS #28 tablet 12/24/17 01/02/18 Rx ARIPiprazole IM [Abilify Maintena] 400 mg IM QMONTH #1 vial 01/02/18 Rx ARIPiprazole [Abilify] 10 mg PO DAILY #14 tab 01/02/18 Rx Allergies Allergy/AdvReac Type Severity Reaction Status Date / Time No Known Allergies Allergy Verified 12/14/17 20:59 Physical Exam Vitals: Vital Signs Temp Pulse Pulse Resp BP BP Pulse Ox 01/02/18 03:30 97.7 F 102 H 16 109/69 96 01/02/18 03:09 117 H 18 142/88 98 05/02/18 00:39 98.7 F 107 H 20 139/76 98 Intake and Output 01/02/18 01/02/18 01/02/18 06:59 14:59 22:59 Other: Weight 65.402 kg PHYSICAL EXAMINATION: GENERAL: The patient is alert and oriented x3, not in any acute distress. Well developed, well nourished. HEENT: Pupils are round and equally reacting to light. EOMI. No scleral icterus. No conjunctival pallor. Normocephalic, atraumatic. No pharyngeal erythema. No thyromegaly. CARDIOVASCULAR: S1 and S2 present. No murmurs, rubs, or gallops. PULMONARY: Chest is clear to auscultation, no wheezing or crackles. ABDOMEN: Soft, nontender, nondistended, normoactive bowel sounds. No palpable organomegaly. MUSCULOSKELETAL: No joint swelling or deformity. EXTREMITIES: No cyanosis, clubbing, or pedal edema. NEUROLOGICAL: Gross neurological examination did not reveal any focal deficits. SKIN: No rashes. Assessment and Plan Plan: -Tachycardia: Secondary to anxiety episodes which is all at this point of time -Nicotine use: Counseling was provided -Anxiety disorder and schizoaffective disorder management as per primary service
== END 2018-01-02 15:14 | disposition home or self-care (01) | DRG 885 ==
LOC: EC 00:25 → 3MHU 03:05
PROVIDERS: ADMIT Psychiatry & Neurology Psychiatry; ATTEND Psychiatry & Neurology Psychiatry
DX: F25.1 Schizoaffective disorder, depressive type (principal); F17.200 Nicotine dependence, unspecified, uncomplicated; M41.9 Scoliosis, unspecified; Z79.899 Other long term (current) drug therapy; Z91.410 Personal history of adult physical and sexual abuse
CPT/HCPCS: 80306; 82075; 99285

== ENCOUNTER 2018-12-08 05:07 | Emergency (ER) | payer MEDICARE, OTHER ==
[2018-12-08 05:17] VITALS: RESP 18
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
[2018-12-08] MEDS ORDERED: LIDOCAINE 1% INJ 10MG/ML (20 ML MDV) SQ ONE (07:06)
[2018-12-08 09:18] VITALS: BP 125/95; PULSE 89; TEMP 99.8
== END 2018-12-08 09:18 | disposition home or self-care (01) ==
LOC: EC 05:07
DX: S01.511A Laceration without foreign body of lip, initial encounter (principal); S06.9X9A Unspecified intracranial injury with loss of consciousness of unspecified duration, initial encounter; Y04.0XXA Assault by unarmed brawl or fight, initial encounter
CPT/HCPCS: 72125; 70486; 70450; 99284; 12011; J2001

== ENCOUNTER 2020-08-02 06:56 | Emergency (ER) | payer MEDICARE, OTHER ==
[2020-08-02 07:08] VITALS: BP 138/82; PULSE 73; RESP 18; TEMP 98.1
[2020-08-02] MEDS ORDERED: IBUPROFEN 600 MG TAB PO STA (07:25)
--- NOTE | 2020-08-02 07:56 | ED ---
Upper Extremity HPI - General Chief Complaint: Extremity Injury, Upper Stated Complaint: [facility] hand pain Time Seen by Provider: 08/02/20 07:13 Source: patient Mode of arrival: ambulatory Limitations: no limitations - History of Present Illness Initial Comments: 29-year-old male patient presents to the emergency department today for evaluation of pain to the left thumb with some numb and tingly feeling. Patient states that this started a couple of days ago while he was at work. 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 States that last evening he had increase in discomfort also had a sharp shooting pain up the volar aspect of his arm for the middle of his wrist. States it occurred twice but is resolved. He denies any known injury. Denies history of similar symptoms. Denies taking any medication for his symptoms. Patient denies any headache, neck pain, back pain, chest pain, shortness of breath, dizziness, weakness, abdominal pain, nausea, vomiting, or difficulties with bowel movements or urination. - Related Data Previous Rx's Medication Instructions Recorded Melatonin 3 mg PO HS #28 tablet 12/24/17 ARIPiprazole IM [Abilify Maintena] 400 mg IM QMONTH #1 vial 01/02/18 ARIPiprazole [Abilify] 10 mg PO DAILY #14 tab 01/02/18 Ibuprofen [Motrin] 600 mg PO Q8HR PRN #30 tab 08/02/20 Allergies Allergy/AdvReac Type Severity Reaction Status Date / Time No Known Allergies Allergy Verified 08/02/20 07:08 Review of Systems ROS Statement: Those systems with pertinent positive or pertinent negative responses have been documented in the HPI. ROS Other: All systems not noted in ROS Statement are negative. Past Medical History Past Medical History: Memory Impairment Additional Past Medical History / Comment(s): psychosis, alt mental status, scoliosis History of Any Multi-Drug Resistant Organisms: None Reported Past Surgical History: No Surgical Hx Reported Additional Past Surgical History / Comment(s): wisdom teeth Past Anesthesia/Blood Transfusion Reactions: No Reported Reaction Past Psychological History: Anxiety, Schizoaffective Disorder Smoking Status: Vaper Past Alcohol Use History: Rare Past Drug Use History: None Reported General Exam Limitations: no limitations General appearance: alert, in no apparent distress, other (Some well-developed, well-nourished adult male patient in no acute distress. Vital signs upon presentation are 98.1F, pulse 73, respirations 18, blood pressure 138/82, pulse ox 98% on room air.) Respiratory exam: Present: normal lung sounds bilaterally. Absent: respiratory distress, wheezes, rales, rhonchi, stridor Cardiovascular Exam: Present: regular rate, normal rhythm, normal heart sounds. Absent: systolic murmur, diastolic murmur, rubs, gallop, clicks Extremities exam: Present: normal inspection, full ROM, normal capillary refill, other (Skin to the left hand is pink, warm, dry. Cap refills less than 3 seconds. Radial pulses 2+ and equal bilaterally. Full range of motion is intact.). Absent: tenderness, pedal edema, joint swelling, calf tenderness Neurological exam: Present: alert, oriented X3, CN II-XII intact Psychiatric exam: Present: normal affect, normal mood Skin exam: Present: warm, dry, intact, normal color. Absent: rash Course Vital Signs 08/02/20 07:05 Temperature 98.1 F Pulse Rate 73 Respiratory 18 Rate Blood Pressure 138/82 O2 Sat by Pulse 98 Oximetry Medical Decision Making - Medical Decision Making 29-year-old male patient presented to the emergency department today for evaluation of painful left hand. Physical examination is unremarkable. Neurovascular status is intact. X-ray was obtained and showed no acute abnormality of the area of pain. Did show lucency involving the tuft of the third digit however patient has no tenderness or complaints of regarding this area. Patient is placed in an [place] wrap. Discuss tendinitis cause for his symptoms. He'll be put on light duty until he is able to follow-up with employee health services. Return parameters were discussed in detail. He verbalizes understanding and agrees with this plan. - Radiology Data Radiology results: report reviewed, image reviewed 3 views of the left hand are obtained. Report is reviewed in its entirety. Impression by Dr. Fernandez shows lucency involving the tuft of the distal phalanx third digit could be chronic correlate with point tenderness to exclude fracture. Disposition Clinical Impression: Left hand tendonitis Disposition: HOME SELF-CARE Condition: Good Instructions (If sedation given, give patient instructions): Tendinitis (ED) Additional Instructions: Rest the hand. Take anti-inflammatory medication as needed for pain relief. Follow-up with orthopedics for further evaluation of symptoms are not improved after 1 week. Follow-up with employee health services as needed. Return to the emergency department immediately for any new, worsening, or concerning symptoms. Prescriptions: Ibuprofen [Motrin] 600 mg PO Q8HR PRN #30 tab PRN Reason: Pain Is patient prescribed a controlled substance at d/c from ED?: No Referrals: Lyle Benjamin DO [Primary Care Provider] - 1-2 days Brady León MD [STAFF PHYSICIAN] - 1-2 days Time of Disposition: 08:17
--- NOTE | 2020-08-02 08:12 | XR ---
EXAMINATION TYPE: XR hand complete LT DATE OF EXAM: 08/02/2020 COMPARISON: NONE HISTORY: Pain TECHNIQUE: Three views are submitted. FINDINGS: Lucency involving the distal third digit. Remaining osseous structures are intact. The joint spaces are preserved and there is no acute fracture or dislocation. IMPRESSION: 1. Lucency involving the tuft of the distal phalanx third digit could be chronic correlate with point tenderness to exclude fracture.
== END 2020-08-02 08:41 | disposition home or self-care (01) ==
LOC: EC 06:56
DX: M67.844 Other specified disorders of tendon, left hand (principal); F17.290 Nicotine dependence, other tobacco product, uncomplicated; X50.3XXA Overexertion from repetitive movements, initial encounter; Y92.69 Other specified industrial and construction area as the place of occurrence of the external cause; Y99.0 Civilian activity done for income or pay
CPT/HCPCS: 99283

== ENCOUNTER → 2020-08-05 | Outpatient (CLI) | payer OTHER ==
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
== END | disposition home or self-care (01) ==
LOC: RADXRMAIN 14:26
PROVIDERS: ATTEND Emergency Medicine
DX: S66.11 Strain of flexor muscle, fascia and tendon of other and unspecified finger at wrist and hand level (principal); R20.9 Unspecified disturbances of skin sensation

== ENCOUNTER 2021-08-27 00:15 | Emergency (ER) | payer MEDICARE, OTHER ==
[2021-08-27 00:22] VITALS: BP 135/72; PULSE 60; RESP 18; TEMP 97.9
--- NOTE | 2021-08-27 00:40 | ED ---
Eye Problem HPI - General Chief complaint: Eye Problems Stated complaint: Left Eye Irritation Time Seen by Provider: 08/27/21 00:27 Source: patient, RN notes reviewed Mode of arrival: ambulatory Limitations: no limitations - History of Present Illness Initial comments: Patient is a 30-year-old male that presents to the emergency department complaining of left eye irritation and swelling. He notes that he tried shooting his cat out of bed when actually. In his eye. Patient notes that it began swelling and became irritated. Patient denied any change in vision. He was otherwise well-appearing. Patient notes that he is a very anxious person. Patient denied any chest pain shortness of breath headache nausea vomiting diarrhea constipation fever fatigue chills. - Related Data Previous Rx's Medication Instructions Recorded Melatonin 3 mg PO HS #28 tablet 12/24/17 ARIPiprazole IM [Abilify Maintena] 400 mg IM QMONTH #1 vial 01/02/18 ARIPiprazole [Abilify] 10 mg PO DAILY #14 tab 01/02/18 Ibuprofen [Motrin] 600 mg PO Q8HR PRN #30 tab 08/02/20 Artificial Tears-Hypromellose 1 drops LEFT EYE TID #10 ml 08/27/21 [Artificial Tear Drops] Allergies Allergy/AdvReac Type Severity Reaction Status Date / Time No Known Allergies Allergy Verified 08/27/21 00:22 Review of Systems ROS Statement: Those systems with pertinent positive or pertinent negative responses have been documented in the HPI. ROS Other: All systems not noted in ROS Statement are negative. Past Medical History Past Medical History: Memory Impairment Additional Past Medical History / Comment(s): psychosis, alt mental status, scoliosis History of Any Multi-Drug Resistant Organisms: None Reported Past Surgical History: No Surgical Hx Reported Additional Past Surgical History / Comment(s): wisdom teeth Past Anesthesia/Blood Transfusion Reactions: No Reported Reaction Past Psychological History: Anxiety, Schizoaffective Disorder Smoking Status: Vaper Past Alcohol Use History: Rare Past Drug Use History: None Reported General Exam Limitations: no limitations General appearance: alert, in no apparent distress Head exam: Present: atraumatic, normocephalic, normal inspection Eye exam: Present: normal appearance, PERRL, EOMI, other (Some lateral left conjunctival swelling consistent with chemosis reaction.). Absent: scleral icterus, conjunctival injection, periorbital swelling ENT exam: Present: normal exam, mucous membranes moist Neck exam: Present: normal inspection Respiratory exam: Present: normal lung sounds bilaterally. Absent: respiratory distress, wheezes, rales, rhonchi, stridor Cardiovascular Exam: Present: regular rate, normal rhythm, normal heart sounds. Absent: systolic murmur, diastolic murmur, rubs, gallop, clicks GI/Abdominal exam: Present: soft, normal bowel sounds. Absent: distended, tenderness, guarding, rebound, rigid Extremities exam: Present: normal inspection, full ROM, normal capillary refill. Absent: tenderness, pedal edema, joint swelling, calf tenderness Neurological exam: Present: alert, oriented X3 Psychiatric exam: Present: normal affect, normal mood Skin exam: Present: warm, dry, intact, normal color. Absent: rash Course Vital Signs 08/27/21 00:20 Temperature 97.9 F Pulse Rate 60 Respiratory 18 Rate Blood Pressure 135/72 O2 Sat by Pulse 100 Oximetry Medical Decision Making - Medical Decision Making 30-year-old male with a irritated left eye. Upon physical exam patient was noted to have chemosis most likely due to cat urinating 9 axes. 125 mg of Solu-Medrol, 50 mg of Benadryl ordered. Patient was informed that this is just a localized ALLERGIC reaction. Was also informed that he does follow-up with ophthalmology in a day or 2. Case discussed with Dr. Ryder Disposition Clinical Impression: Chemosis Disposition: HOME SELF-CARE Condition: Stable Instructions (If sedation given, give patient instructions): Eye Lubricant (Into the eye) Additional Instructions: Please return to the Emergency Department if symptoms worsen or any other concerns. Follow-up with primary care 1-2 days. Use artificial tears as prescribed. Follow-up with construction sales manager in the next 1-2 days. Take Benadryl and Motrin as needed for discomfort and symptom control. Is patient prescribed a controlled substance at d/c from ED?: No Referrals: Lyle Benjamin DO [Primary Care Provider] - 1-2 days Time of Disposition: 00:39
[2021-08-27] MEDS: methylPREDNISolone SOD SUCCI 125 MG/2 ML VIAL IM ONE (00:45)
[2021-08-27] MEDS: diphenhydrAMINE 50 MG/ML 1 ML VIAL IM STA (00:46)
== END 2021-08-27 00:53 | disposition home or self-care (01) ==
LOC: EC 00:15
DX: H11.422 Conjunctival edema, left eye (principal); F41.9 Anxiety disorder, unspecified; M41.9 Scoliosis, unspecified; F25.9 Schizoaffective disorder, unspecified; F17.290 Nicotine dependence, other tobacco product, uncomplicated; Z72.89 Other problems related to lifestyle
CPT/HCPCS: 99283; 96372 ×2; J1200; J2930

== ENCOUNTER 2024-09-22 22:31 | Emergency (ER) | payer OTHER, BC ==
[2024-09-22 22:38] LABS: Glucose,Whole Blood 130 mg/dL (70-110)
[2024-09-22] MEDS: SODIUM CHLORIDE 0.9% 1,000 ML IV STA (22:50)
[2024-09-22 22:54] LABS: HCT 41.7 % (39.0-53.0); HGB 14.8 gm/dL (13.0-17.5); MCH 30.8 pg (25.0-35.0); MCHC 35.4 g/dL (31.0-37.0); MCV 87.1 fL (80.0-100.0); Mean Platelet Volume 6.6; Platelet Count 219 k/uL (150-450); RBC 4.79 m/uL (4.30-5.90); RDW 11.8 % (11.5-15.5); WBC 8.2 k/uL (3.8-10.6)
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
[2024-09-22 23:07] LABS: AST 49 U/L (17-59); African American GFR (CKD) >90 (>60 ml/min/1.73 sqM); Albumin 4.9 g/dL (3.5-5.0); Alcohol <10 mg/dL; Alkaline Phosphatase 40 U/L (38-126); Anion Gap 13 mmol/L; Blood Urea Nitrogen 6 mg/dL (9-20); Calcium 9.5 mg/dL (8.4-10.2); Carbon Dioxide 28 mmol/L (22-30); Chloride 96 mmol/L (98-107); Glucose 123 mg/dL (74-99); Non-African American GFR(CKD) >90 (>60 ml/min/1.73 sqM); Sodium 137 mmol/L (137-145); Total Bilirubin 0.7 mg/dL (0.2-1.3); Total Protein 7.3 g/dL (6.3-8.2)
[2024-09-22] MEDS: ACETAMINOPHEN TAB 500 MG TAB PO STA (23:09)
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
[2024-09-22 23:13] LABS: ALT 47 U/L (4-49)
[2024-09-22] MEDS: IPRATROPIUM-ALBUTEROL 3 ML NEB INHALATION STA (23:21)
[2024-09-22 23:27] LABS: Partial Thromboplastin Time 20.7 sec (22.0-30.0)
[2024-09-22] MEDS: DIPH,PERTUS(ACELL)TETVAC-LF 0.5 ML VIAL IM ONE (23:30)
[2024-09-22 23:41] VITALS: TEMP 98.2
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
[2024-09-23] MEDS: LACTATED RINGERS 1,000 ML BAG IV STA (00:30)
[2024-09-23] MEDS: NICOTINE 21MG/24HR PATCH TRANSDERM STA (00:54)
[2024-09-23 00:59] LABS: Appearance,Urine Clear (Clear); Bilirubin,Urine Negative (Negative); Blood,Urine Negative (Negative); Color,Urine Colorless; Glucose,Urine (UA) Negative (Negative); Ketones,Urine Negative (Negative); Leukocyte Esterase,Urine Negative (Negative); Nitrite,Urine Negative (Negative); Protein,Urine Negative (Negative); Specific Gravity,Urine 1.014 (1.001-1.035); Urobilinogen,Urine <2.0 mg/dL (<2.0)
[2024-09-23 01:02] VITALS: RESP 16
[2024-09-23 01:11] VITALS: BP 120/78; PULSE 78
[2024-09-23 01:18] LABS: Amphetamine Screen,Urine Not Detected (NotDetected); Barbiturate Screen,Urine Not Detected (NotDetected); Benzodiazepines Screen,Urine Not Detected (NotDetected); Cocaine Screen,Urine Not Detected (NotDetected); Methadone Screen, Urine Not Detected (NotDetected); Opiate Screen,Urine Not Detected (NotDetected); Oxycodone Screen, Urine Not Detected (NotDetected); Phencyclidine Screen,Urine Not Detected (NotDetected); Tricyclic Antidepressant,Urine Not Detected (NotDetected); Urn Cannabinoid Scrn Not Detected (NotDetected)
[2024-09-23 03:48] LABS: Band Neutrophils % 1 %; Eosinophils # (M) 0.08 k/uL (0-0.7); Lymphocytes # (M) 2.46 k/uL (1.0-4.8); Monocytes # (M) 0.25 k/uL (0-1.0); Neutrophils % (M) 65 %; Nucleated Red Blood Cells 0 /100 WBC (0-0); Total Cells Counted 100
== END 2024-09-23 01:40 | disposition home or self-care (01) ==
LOC: EC 22:31
DX: S80.02XA Contusion of left knee, initial encounter (principal); S80.01XA Contusion of right knee, initial encounter; F25.9 Schizoaffective disorder, unspecified; F17.290 Nicotine dependence, other tobacco product, uncomplicated; Z23 Encounter for immunization; V47.5XXA Car driver injured in collision with fixed or stationary object in traffic accident, initial encounter; W22.09XA Striking against other stationary object, initial encounter
CPT/HCPCS: 36415 ×2; 94640; 93005; 86900; 86901; 80053; 82375; 82550; 83605 ×2; 84484; 85025; 85610; 85730; 86850; 81003; 80306; 80320; 72170; 71045; 72125; 70450; 71260; 74177; 90715; 99291; 90471; 96360; G0390; S4990; Q9967